=== PATIENT | male | born 1950 | race Hispanic/Latino ===

== ENCOUNTER → 2017-12-01 | Outpatient (CLI) | payer OTHER ==
[~2017-12-01] MED LIST: BRIM5DRO OP; LACT10SO32 PO; LATA2.5D2 OP; LIGH1DRO OP; LOSA25TA21 PO; LOSA50TA37 PO; PANT40TA25 PO; PRAV10TA39 PO; PROP10TA10 PO; SIME80TA66 PO; TRAM50TA4 PO
== END | disposition home or self-care (01) ==
LOC: RAH 08:05
PROVIDERS: ATTEND Internal Medicine Gastroenterology
DX: K74.60 Unspecified cirrhosis of liver (principal)
CPT/HCPCS: 76700

== ENCOUNTER 2018-02-07 06:19 | Day surgery (SDC) | payer OTHER ==
[~2018-02-07] VITALS: Ht 167.6 cm; Wt 111.1 kg
[~2018-02-07 06:19] MED LIST changes: -BRIM5DRO OP; -LOSA50TA37 PO; -PRAV10TA39 PO; -SIME80TA66 PO; -TRAM50TA4 PO
[2018-02-07 06:29] VITALS: BP 179/72
[2018-02-07] MEDS ORDERED: SODIUM CHLORIDE 0.9% 1000ML 1,000 ML IV ONE (06:40)
[2018-02-07] MEDS ORDERED: SIME80TA66 PO (07:19)
[2018-02-07] MEDS ORDERED: PRAV10TA39 PO (07:19)
[2018-02-07] MEDS ORDERED: BRIM5DRO OP (07:19)
[2018-02-07] MEDS ORDERED: LOSA50TA37 PO (07:19)
[2018-02-07] MEDS ORDERED: TRAM50TA4 PO (07:19)
[2018-02-07] MEDS ORDERED: PROPOFOL 10 MG/ML 20ML VIAL IV ONE ×2 (08:00)
[2018-02-07 08:10] VITALS: BP 126/59
== END 2018-02-07 08:45 | disposition home or self-care (01) ==
LOC: DAH 06:19
PROVIDERS: ATTEND Internal Medicine Gastroenterology
DX: I85.10 Secondary esophageal varices without bleeding (principal); I86.4 Gastric varices; K76.6 Portal hypertension; K31.89 Other diseases of stomach and duodenum; E78.5 Hyperlipidemia, unspecified; G47.33 Obstructive sleep apnea (adult) (pediatric); Z86.010 Personal history of colon polyps; I10 Essential (primary) hypertension; E11.9 Type 2 diabetes mellitus without complications; D64.9 Anemia, unspecified; H40.9 Unspecified glaucoma; K74.60 Unspecified cirrhosis of liver; K72.90 Hepatic failure, unspecified without coma; Z68.42 Body mass index [BMI] 45.0-49.9, adult; Z79.899 Other long term (current) drug therapy; Z79.84 Long term (current) use of oral hypoglycemic drugs
CPT/HCPCS: 43235; 82948 ×2; 93005; A4606; J2704 ×2; J7030

== ENCOUNTER 2018-09-26 06:35 | Day surgery (SDC) | payer OTHER ==
[~2018-09-26] VITALS: Ht 165.1 cm; Wt 109.5 kg
[~2018-09-26 06:35] MED LIST changes: +BRIM5DRO OP; -LIGH1DRO OP; -LOSA25TA21 PO; +PANT40TA PO; -PANT40TA25 PO; +PRAV10TA39 PO; +PROP10TA72 PO; +SODIUM CHLORIDE 0.9% 1000ML 1,000 ML IV ONE; +TRAM50TA4 PO
[2018-09-26 07:55] VITALS: BP 183/67
[2018-09-26] MEDS ORDERED: PROPOFOL 10 MG/ML 20ML VIAL IV ONE (08:56)
[2018-09-26 09:29] VITALS: BP 100/30
[2018-09-26 09:34] VITALS: BP 108/43
[2018-09-26 09:39] VITALS: BP 108/41
== END 2018-09-26 09:58 ==
LOC: DAH 06:35 → ENDO 06:35
PROVIDERS: ATTEND Internal Medicine
DX: Z12.11 Encounter for screening for malignant neoplasm of colon (principal); D12.3 Benign neoplasm of transverse colon; D12.2 Benign neoplasm of ascending colon; K63.5 Polyp of colon; K64.0 First degree hemorrhoids; K57.30 Diverticulosis of large intestine without perforation or abscess without bleeding; I10 Essential (primary) hypertension; E78.5 Hyperlipidemia, unspecified; E11.9 Type 2 diabetes mellitus without complications; K74.60 Unspecified cirrhosis of liver; Z79.899 Other long term (current) drug therapy; Z86.010 Personal history of colon polyps; Z88.8 Allergy status to other drugs, medicaments and biological substances
CPT/HCPCS: 45380; 45385; 82948 ×2; 88305; 93005; A4606; J2704; J7030

== ENCOUNTER → 2018-10-11 | Outpatient (CLI) | payer OTHER ==
[~2018-10-11] MED LIST changes: -SODIUM CHLORIDE 0.9% 1000ML 1,000 ML IV ONE
== END | disposition home or self-care (01) ==
LOC: RAH 07:36
PROVIDERS: ATTEND Internal Medicine Gastroenterology
DX: K82.4 Cholesterolosis of gallbladder (principal)
CPT/HCPCS: 76700; 93975

== ENCOUNTER → 2019-09-04 | Outpatient (CLI) | payer OTHER ==
[~2019-09-04] MED LIST changes: +LOSA50TA64 PO; +METF-446 PO; +NEOMYCIN OS; +NETA2.5D OU
== END | disposition home or self-care (01) ==
LOC: RAH 10:00
PROVIDERS: ATTEND Internal Medicine Gastroenterology
DX: K76.0 Fatty (change of) liver, not elsewhere classified (principal); K80.20 Calculus of gallbladder without cholecystitis without obstruction
CPT/HCPCS: 76700

== ENCOUNTER 2019-09-07 06:13 | Day surgery (SDC) | payer OTHER ==
[~2019-09-07] VITALS: Ht 167.6 cm; Wt 106.1 kg
[~2019-09-07 06:13] MED LIST changes: -PROP10TA72 PO; +SODIUM CHLORIDE 0.9% 1000ML 1,000 ML IV ONE
[2019-09-07] MEDS ORDERED: PROPOFOL 10 MG/ML 20ML VIAL IV ONE (06:21)
[2019-09-07] MEDS ORDERED: LIDOCAINE HCL 1% 20 ML VIAL ONE (06:21)
[2019-09-07 06:44] VITALS: BP 182/84
[2019-09-07 08:23] VITALS: BP 137/71
[2019-09-07 08:30] VITALS: BP 147/74
[2019-09-07 08:42] VITALS: BP 146/70
== END 2019-09-07 08:47 | disposition home or self-care (01) ==
LOC: ENDO 06:13 → DAH 06:13 → ENDO 08:47
PROVIDERS: ATTEND Internal Medicine Gastroenterology
DX: I85.00 Esophageal varices without bleeding (principal); K29.50 Unspecified chronic gastritis without bleeding; K76.6 Portal hypertension; K29.00 Acute gastritis without bleeding; E11.9 Type 2 diabetes mellitus without complications; E78.5 Hyperlipidemia, unspecified; K74.60 Unspecified cirrhosis of liver; K72.90 Hepatic failure, unspecified without coma; G47.30 Sleep apnea, unspecified; I10 Essential (primary) hypertension; K64.9 Unspecified hemorrhoids; K57.30 Diverticulosis of large intestine without perforation or abscess without bleeding; Z99.89 Dependence on other enabling machines and devices; Z86.010 Personal history of colon polyps; Z79.84 Long term (current) use of oral hypoglycemic drugs; Z79.899 Other long term (current) drug therapy
CPT/HCPCS: 43239; 82948; 88305; A4606; J2704; J7030

== ENCOUNTER → 2020-03-26 | Outpatient (CLI) | payer OTHER ==
[~2020-03-26] MED LIST changes: -SODIUM CHLORIDE 0.9% 1000ML 1,000 ML IV ONE
== END | disposition home or self-care (01) ==
LOC: RAH 08:16
PROVIDERS: ATTEND Internal Medicine Gastroenterology
DX: K80.20 Calculus of gallbladder without cholecystitis without obstruction (principal); K74.60 Unspecified cirrhosis of liver; R16.1 Splenomegaly, not elsewhere classified
CPT/HCPCS: 76700; 93975